=== PATIENT | female | born 1940 | race Caucasian/White ===

== ENCOUNTER 2018-01-11 15:55 | Inpatient (IN) | payer OTHER, MEDICAID ==
[2018-01-11 17:38] LABS: ADD MAN DIFF? NO
[2018-01-11] MEDS: SOD CHLORIDE 0.9% 1,000 ML IV ×3 (17:44→22:00)
[2018-01-11 17:46] LABS: ADD UMIC YES; UR ASCORBIC ACID 40 mg/dL (NEGATIVE); UR BILIRUBIN (Dip) NEGATIVE (NEGATIVE); UR BLOOD (Dip) NEGATIVE (NEGATIVE); UR CLARITY CLEAR (CLEAR); UR COLOR STRAW (YELLOW); UR GLUCOSE (Dip) NEGATIVE (NEGATIVE); UR KETONES (Dip) NEGATIVE (NEGATIVE); UR LEUKOCYTE ESTERASE (Dip) NEGATIVE Leu/ul (NEGATIVE); UR NITRITE (Dip) NEGATIVE (NEGATIVE); UR RBC 0 /HPF (0-5); UR SPECIFIC GRAVITY (Dip) 1.005 (1.003-1.030); UR TOTAL PROTEIN (Dip) 2+ mg/dl (NEGATIVE); UR UROBILINOGEN (Dip) NEGATIVE (NEGATIVE); UR WBC 0 /HPF (0-5)
[2018-01-11 18:05] LABS: BASOPHILS % 0.3 % (0.0-2.0); EOSINOPHILS # 0.1 10^3/ul (0.0-0.5); EOSINOPHILS % 0.7 % (0.0-7.0); HEMATOCRIT 27.2 % (37.0-47.0); HEMOGLOBIN 10.2 g/dl (12.0-16.0); LYMPHOCYTES # 2.5 10^3/ul (0.8-2.9); LYMPHOCYTES % 19.7 % (15.0-51.0); MEAN CORPUSCULAR HEMOGLOBIN 33.3 pg (29.0-33.0); MEAN CORPUSCULAR HGB CONC 37.5 g/dl (32.0-37.0); MEAN CORPUSCULAR VOLUME 88.9 fl (82.0-101.0); MEAN PLATELET VOLUME 10.1 fl (7.4-10.4); MONOCYTE # 0.8 10^3/ul (0.3-0.9); NEUTROPHIL # 9.3 10^3/ul (1.6-7.5); NEUTROPHILS % 72.4 % (39.0-77.0); PLATELET COUNT 215 10^3/UL (140-415); RED BLOOD COUNT 3.06 10^6/ul (4.20-5.40); RED CELL DISTRIBUTION WIDTH 11.4 % (11.5-14.5)
[2018-01-11 18:05] LABS: WHITE BLOOD COUNT 12.9 10^3/ul (4.8-10.8)
[2018-01-11 18:08] LABS: ALANINE AMINOTRANSFERASE 40 IU/L (13-69); ALBUMIN 4.3 g/dl (3.3-4.9); ALBUMIN/GLOBULIN RATIO 1.13; ALKALINE PHOSPHATASE 208 IU/L (42-121); ANION GAP 20 (8-16); ASPARTATE AMINO TRANSFERASE 44 IU/L (15-46); BILIRUBIN,INDIRECT 0.6 mg/dl (0-1.1); BILIRUBIN,TOTAL 0.6 mg/dl (0.2-1.3); BLOOD UREA NITROGEN 62 mg/dl (7-20); CALCIUM 8.9 mg/dl (8.4-10.2); CARBON DIOXIDE 28 mmol/L (21-31); CHLORIDE 78 mmol/L (97-110); GLUCOSE 192 mg/dl (70-220); LIPASE 187 U/L (23-300); POTASSIUM 4.3 mmol/L (3.5-5.1); SODIUM 122 mmol/L (135-144); TOTAL PROTEIN 8.1 g/dl (6.1-8.1)
[2018-01-11 18:19] LABS: TROPONIN-I 0.015 ng/ml (0.000-0.120)
[2018-01-11] MEDS ORDERED: ACETAMINOPHEN 325 MG TAB PO ×2 (19:00→19:30)
[2018-01-11] MEDS ORDERED: ONDANSETRON 4 MG INJ IV ×2 (19:00→19:30)
[2018-01-11] MEDS ORDERED: MAGNESIUM HYDROXIDE 30ML CUP PO (19:30)
[2018-01-11] MEDS ORDERED: hydrALAzine 20 MG INJ IV (19:30)
[2018-01-11] MEDS ORDERED: NA PHOSPHATE/BIPHOS 133 ML ENEMA PR (19:30)
[2018-01-11] MEDS ORDERED: NACL 0.9% 3 ML SYG IV (19:30)
[2018-01-11] MEDS ORDERED: ALBUTEROL/IPRATROPIUM (NEB) 3 ML AMP HHN (19:30)
[2018-01-11] MEDS ORDERED: LORAZEPAM 2 MG INJ IV (19:30)
[2018-01-11] MEDS ORDERED: DOCUSATE SODIUM 100 MG CAP PO (19:30)
[2018-01-11] MEDS ORDERED: NITROGLYCERIN (SL) 0.4 MG TAB SL (19:30)
[2018-01-11] MEDS ORDERED: morphine 2 MG INJ IV (19:30)
[2018-01-11 20:19] LABS: FREE T4 (FREE THYROXINE) 1.52 ng/dl (0.78-2.44)
[2018-01-11] MEDS: HYDROCODONE/APAP (5/325) TAB PO (20:47)
[2018-01-11] MEDS: FERROUS SULFATE (EC) 325 MG TAB PO (21:59)
[2018-01-11] MEDS ORDERED: GLUCAGON 1 MG INJ IM (22:00)
[2018-01-11] MEDS ORDERED: GLUCOSE GEL 15 GRAM TUBE BUCCAL (22:00)
[2018-01-11] MEDS ORDERED: GLUCOSE GEL 15 GRAM TUBE PO ×2 (22:00)
[2018-01-11] MEDS ORDERED: DEXTROSE 50% 50 ML SYRINGE IV ×2 (22:00)
[2018-01-11] MEDS: HEPARIN 5,000 UNIT/0.5 ML VIAL SC (22:01)
[2018-01-11] MEDS: INSULIN ASPART [NOVOLOG] 3 ML PEN SC (22:05)
[2018-01-11] MEDS: PHENAZOPYRIDINE 100 MG TAB PO (22:05)
[2018-01-11] MEDS: PRAVASTATIN 20 MG TAB PO (22:13)
[2018-01-12] MEDS: NIFEdipine (XL) 30 MG TAB PO ×2 (01:13→08:12)
[2018-01-12] MEDS: ACCU-CHEK XX (01:13)
[2018-01-12 05:02] LABS: ADD MAN DIFF? NO
[2018-01-12 05:11] LABS: BASOPHILS % 0.4 % (0.0-2.0); EOSINOPHILS # 0.1 10^3/ul (0.0-0.5); EOSINOPHILS % 1.3 % (0.0-7.0); HEMATOCRIT 26.1 % (37.0-47.0); HEMOGLOBIN 9.5 g/dl (12.0-16.0); LYMPHOCYTES # 2.8 10^3/ul (0.8-2.9); LYMPHOCYTES % 26.3 % (15.0-51.0); MEAN CORPUSCULAR HEMOGLOBIN 32.9 pg (29.0-33.0); MEAN CORPUSCULAR HGB CONC 36.4 g/dl (32.0-37.0); MEAN CORPUSCULAR VOLUME 90.3 fl (82.0-101.0); MONOCYTE # 0.8 10^3/ul (0.3-0.9); MONOCYTES % 7.3 % (0.0-11.0); NEUTROPHIL # 6.8 10^3/ul (1.6-7.5); NEUTROPHILS % 63.8 % (39.0-77.0); PLATELET COUNT 200 10^3/UL (140-415); RED BLOOD COUNT 2.89 10^6/ul (4.20-5.40); RED CELL DISTRIBUTION WIDTH 11.4 % (11.5-14.5)
[2018-01-12 05:11] LABS: WHITE BLOOD COUNT 10.6 10^3/ul (4.8-10.8)
[2018-01-12 05:17] LABS: HEMOGLOBIN A1C 5.6 % (0-5.9)
[2018-01-12] MEDS: PANTOPRAZOLE (EC) 40 MG TAB PO (05:36)
[2018-01-12 05:43] LABS: CHOLESTEROL 149 mg/dl (100-200)
[2018-01-12 05:43] LABS: ANION GAP 14 (8-16); BLOOD UREA NITROGEN 56 mg/dl (7-20); CALCIUM 8.9 mg/dl (8.4-10.2); CARBON DIOXIDE 30 mmol/L (21-31); CHLORIDE 87 mmol/L (97-110); CHOL/HDL RATIO 2.1 RATIO; CREATININE 1.42 mg/dl (0.44-1.00); GLUCOSE 135 mg/dl (70-220); HDL CHOLESTEROL 70 mg/dl (33-92); LDL CHOLESTEROL,CALCULATED 54 mg/dl; MAGNESIUM 2.3 mg/dl (1.7-2.5); PHOSPHORUS 3.8 mg/dl (2.5-4.9); POTASSIUM 3.2 mmol/L (3.5-5.1); SODIUM 128 mmol/L (135-144); TRIGLYCERIDES 124 mg/dl (0-149)
[2018-01-12] MEDS: INSULIN ASPART [NOVOLOG] 3 ML PEN SC ×2 (08:09→12:13)
[2018-01-12] MEDS: HEPARIN 5,000 UNIT/0.5 ML VIAL SC (08:10)
[2018-01-12] MEDS: FERROUS SULFATE (EC) 325 MG TAB PO (08:12)
[2018-01-12] MEDS: CHOLECALCIFEROL 2,000 UNIT CAP PO (08:12)
[2018-01-12] MEDS: PHENAZOPYRIDINE 100 MG TAB PO ×2 (08:12→12:09)
[2018-01-12] MEDS: SOD CHLORIDE 0.9% 1,000 ML IV (08:14)
[2018-01-12 08:34] LABS: OSMOLALITY 275 mOsm/kg (280-295)
[2018-01-12] MEDS: POTASSIUM CHLORIDE 50 ML IVPB (09:40)
== END 2018-01-12 13:51 | disposition home or self-care (01) | DRG 641 ==
LOC: E/R 15:55 → PP2 18:59
DX: E87.1 Hypo-osmolality and hyponatremia (principal); N39.0 Urinary tract infection, site not specified; I12.9 Hypertensive chronic kidney disease with stage 1 through stage 4 chronic kidney disease, or unspecified chronic kidney disease; E11.22 Type 2 diabetes mellitus with diabetic chronic kidney disease; N18.9 Chronic kidney disease, unspecified; E78.5 Hyperlipidemia, unspecified; E87.6 Hypokalemia
CPT/HCPCS: 36415; 71045; 80048; 80053; 80061; 81001; 82962; 83036; 83690; 83735; 83930; 84100; 84439; 84443; 84484; 85025; 92610; 93005; 99285-25